=== PATIENT | female | born 1960 | race Caucasian/White ===

== ENCOUNTER 2018-02-14 12:38 | Emergency (ER) | payer MEDICARE, MEDICAID ==
[~2018-02-14] VITALS: Ht 162.6 cm; Wt 121.6 kg
[2018-02-14] MEDS ORDERED: INSU100C SQ-INSULIN (13:15)
[2018-02-14] MEDS ORDERED: INSU100V8 SQ (13:15)
[2018-02-14] MEDS ORDERED: ATOR-2 PO (13:16)
[2018-02-14] MEDS ORDERED: LISI2.5T PO (13:16)
[2018-02-14] MEDS ORDERED: HYDR12.53 PO (13:16)
[2018-02-14] MEDS ORDERED: GABA300C10 PO (13:16)
[2018-02-14] MEDS ORDERED: NITR2.5C3 PO (13:17)
[2018-02-14] MEDS ORDERED: ASPI-650 PO (13:21)
[2018-02-14] MEDS ORDERED: FLUT1DIS5 IH (13:22)
[2018-02-14] MEDS ORDERED: ALBU0.63 NEB (13:22)
[2018-02-14] MEDS ORDERED: SODIUM CHLORIDE 0.9% 1,000ML IVBOLUS ONE (14:00)
[2018-02-14 14:02] LABS: MICROSCOPIC AUTO
[2018-02-14 14:08] LABS: CULTURE INDICATED? NO
[2018-02-14 14:14] LABS: PH, VENOUS 7.385 pH (7.320-7.420)
[2018-02-14 14:15] LABS: FIO2 ROOM AIR %
[2018-02-14 14:16] LABS: BASOPHILS # (AUTO) 0.22 x10^3/uL (0-0.1); BASOPHILS % (AUTO) 2 % (0-1); EOSINOPHILS # (AUTO) 0.39 x10^3/uL (0-0.4); EOSINOPHILS % (AUTO) 3 % (1-7); LYMPHOCYTES # (AUTO) 3.89 x10^3/uL (1-3.4); LYMPHOCYTES % (AUTO) 33 % (22-44); MD NO; MEAN CORPUSCULAR HEMOGLOBIN 29.8 pg (27.0-34.8); MEAN CORPUSCULAR HGB CONC 33.7 g/dL (32.4-35.8); MEAN CORPUSCULAR VOLUME 88.6 fL (80-100); MEAN PLATELET VOLUME 8.8 fL (7.4-10.4); MONOCYTES # (AUTO) 0.66 x10^3/uL (0.2-0.8); MONOCYTES % (AUTO) 6 % (2-9); NEUTROPHILS % (AUTO) 57 % (42-75); PLATELET COUNT 287 x10^3/uL (130-400); RED BLOOD COUNT 4.55 x10^6/uL (3.82-5.3); RED CELL DISTRIBUTION WIDTH 13.8 % (9.6-15.2)
[2018-02-14 14:24] LABS: ALANINE AMINOTRANSFERASE 25 U/L (12-78); ALBUMIN 2.9 g/dL (3.4-5.0); ANION GAP 9 mmol/L (5-15); CALCIUM 8.7 mg/dL (8.5-10.1); CHLORIDE 101 mmol/L (98-107); CREATININE 1.11 mg/dL (0.55-1.02)
[2018-02-14 14:26] LABS: ALKALINE PHOSPHATASE 143 U/L (45-117); BILIRUBIN,TOTAL 0.5 mg/dL (0.2-1.0); TOTAL PROTEIN 7.4 g/dL (6.4-8.2)
[2018-02-14 14:38] LABS: ACETONE, SERUM Negative (Negative)
[2018-02-14] MEDS ORDERED: INSULIN REGULAR 100 UNITS/ML, 3ML VIAL ONE (15:26)
[2018-02-14] MEDS ORDERED: INSULIN REGULAR 100 UNITS/ML, 3ML VIAL IVPush ONE (15:30)
[2018-02-14 17:04] VITALS: BP 163/81
== END 2018-02-14 17:08 | disposition home or self-care (01) ==
LOC: ED 16:36
DX: E11.65 Type 2 diabetes mellitus with hyperglycemia (principal); E11.40 Type 2 diabetes mellitus with diabetic neuropathy, unspecified; I10 Essential (primary) hypertension; Z79.4 Long term (current) use of insulin
CPT/HCPCS: 36415; 80053; 81001; 82010; 82803; 82962; 83690; 85025; 93005; 96361; 96374; 99285; J7030